=== PATIENT | male | born 1985 | race Caucasian/White ===

== ENCOUNTER 2023-03-20 10:01 | Inpatient (IN) | payer BC ==
[~2023-03-20] VITALS: Ht 182.9 cm; Wt 79.6 kg
[2023-03-20 10:45] LABS: CLARITY,URINE CLEAR (Clear); COLOR,URINE STRAW (Yellow); GLUCOSE, URINE >=1000 mg/dl (Neg); KETONES,URINE >=80 mg/dl (Neg); LEUKOCYTE ESTERASE ,URINE NEGATIVE (Neg); NITRITES, URINE NEGATIVE (Neg); OCCULT BLOOD,URINE TRACE-INTACT (Neg); PROTEIN,URINE NEGATIVE (Neg); UROBILINOGEN,URINE 0.2 E.U/dL (0.2-1.0)
[2023-03-20] MEDS ORDERED: normal saline 1000ML IV soln IVB ONE (10:45)
[2023-03-20] MEDS ORDERED: metoclopramide 5 mg/ml inj IV ONE (10:45)
[2023-03-20] MEDS ORDERED: ondansetron/PF 4mg/2ml inj IV ONE (10:45)
[2023-03-20 10:46] LABS: UA COLLECTION TYPE CLN CATCH MIDSTREAM
[2023-03-20 10:46] LABS: BASOPHILS % (AUTO) 0.2 % (0-1); EOSINOPHILS % (AUTO) 0 % (0-6); HEMATOCRIT 48.6 % (42.0-52.0); HEMOGLOBIN 16.3 g/dl (14.0-17.9); LYMPHOCYTES # (AUTO) 0.7 X10'3 (1.1-4.8); LYMPHOCYTES % (AUTO) 8.2 % (21-51); MEAN CORPUSCULAR HEMOGLOBIN 34.1 PG (27.0-31.0); MEAN CORPUSCULAR HGB CONC 33.5 g/dL (33.0-36.5); MEAN CORPUSCULAR VOLUME 101.9 FL (78-98); MEAN PLATELET VOLUME 8.6 FL (7.4-10.4); MONOCYTES # (AUTO) 0.5 X10'3 (0-0.9); MONOCYTES % (AUTO) 5.7 % (2-12); NEUTROPHILS # (AUTO) 7.4 X10'3 (1.8-7.7); NEUTROPHILS % (AUTO) 85.9 % (42-75); PLATELET COUNT 228 X10'3 (140-440); RED BLOOD COUNT 4.77 X10'6 (4.70-6.10); RED CELL DISTRIBUTION WIDTH 12.7 % (11.5-14.5); WHITE BLOOD COUNT 8.7 X10'3 (4.5-11.0)
[2023-03-20 10:54] LABS: BACTERIA,URINE FEW /HPF (Neg); MUCUS STRANDS NONE SEEN /LPF (Neg); RBC,URINE 0-2 /HPF (0-2); SQUAMOUS EPITHELIAL CELL,UR FEW /LPF (FEW); WBC,URINE 0-4 /HPF (0-4)
[2023-03-20 11:01] LABS: ALANINE AMINOTRANSFERASE 174 U/L (12-78); ALBUMIN 5.2 G/DL (3.4-5.0); ALBUMIN/GLOBULIN RATIO 1.3 (1.1-1.5); ALKALINE PHOSPHATASE 101 IU/L (46-116); ANION GAP 29 (8-16); ASPARTATE AMINO TRANSFERASE 121 U/L (10-37); BILIRUBIN,TOTAL 0.9 MG/DL (0.1-1.0); BLOOD UREA NITROGEN 31 MG/DL (7-18); BUN/CREATININE RATIO 14.4 (10.0-20.0); CALCIUM 9.1 MG/DL (8.5-10.1); CHLORIDE 78 MMOL/L (99-107); CREATININE 2.15 MG/DL (0.60-1.10); LIPASE 245 U/L (73-393); TOTAL PROTEIN 9.2 G/DL (6.4-8.2); eGFR 35 ML/MIN
[2023-03-20 11:05] LABS: GLUCOSE 556 MG/DL (70-104); POTASSIUM 6.2 MMOL/L (3.5-5.1); SODIUM 116 MMOL/L (135-145)
[2023-03-20 11:06] LABS: TOTAL CARBON DIOXIDE 8.7 MMOL/L (24-32)
[2023-03-20] MEDS ORDERED: Insulin Reg/NS 100units/100mL 100 ML IV PRN (12:05)
[2023-03-20] MEDS ORDERED: ringers solution, lacted 1,000 ML IV ONE (12:05)
--- NOTE | 2023-03-20 12:18 | NUR ---
RN CALLED PHARM TO REQ INSULIN DRIP BE PREPARED.
[2023-03-20] MEDS ORDERED: acetaminophen 325mg tablet PO PRN (12:40)
[2023-03-20] MEDS ORDERED: insulin regular, human U-100 3ml vial - multi-dose IV PRN (12:40)
[2023-03-20] MEDS ORDERED: Insulin Reg/NS 100units/100mL 100 ML IV SCH (12:40)
[2023-03-20] MEDS ORDERED: magnesium 4gm in 100ml NS 100 ML IV PRN (12:40)
[2023-03-20] MEDS ORDERED: magnesium Cl slow-release 64mg tablet PO PRN (12:40)
[2023-03-20] MEDS ORDERED: sodium phosphate inj. 30 MMOL in dextrose 5%-water 250 ML IV PRN (12:40)
[2023-03-20] MEDS ORDERED: sodium bicarbonate (8.4%) inj. 100 MEQ in dextrose 5% water 500ml 500 ML IV PRN (12:40)
[2023-03-20] MEDS ORDERED: ondansetron/PF 4mg/2ml inj IV PRN (12:40)
[2023-03-20] MEDS ORDERED: potassium Cl 20 mEq SR tablet PO PRN ×4 (12:40)
[2023-03-20] MEDS ORDERED: potassium Cl 40MEQ/1/2NS 520ml 520 ML IV PRN ×3 (12:40)
[2023-03-20] MEDS ORDERED: magnesium hydroxide 30ml (MOM) UD suspension PO PRN (12:40)
[2023-03-20] MEDS ORDERED: potassium CL 20mEq in D5-1/2NS 1,000 ML IV PRN (12:40)
[2023-03-20] MEDS ORDERED: HYDROcodone/acetaminophen 5mg/325mg tablet PO PRN (12:40)
[2023-03-20] MEDS ORDERED: Neutra Phos packet PO PRN (12:40)
[2023-03-20] MEDS ORDERED: HYDROcodone/acetaminophen 10/325mg tab PO PRN (12:40)
[2023-03-20] MEDS ORDERED: magnesium 2GM in 50ml NS 50 ML IV PRN (12:40)
[2023-03-20] MEDS ORDERED: sodium bicarbonate (8.4%) inj. 50 MEQ in dextrose 5% water 500ml 250 ML IV PRN (12:40)
[2023-03-20] MEDS ORDERED: sodium phosphate inj. 15 MMOL in dextrose 5%-water 250 ML IV PRN (12:40)
[2023-03-20] MEDS ORDERED: mag hydrox/Alum hydrox/simeth 30ml oral suspension PO PRN (12:40)
[2023-03-20] MEDS: normal saline 1000ml 1,000 ML IV SCH ×5 (13:10→20:40)
[2023-03-20 13:31] LABS: ALBUMIN 4.5 G/DL (3.4-5.0); ANION GAP 28 (8-16); BLOOD UREA NITROGEN 29 MG/DL (7-18); BUN/CREATININE RATIO 16.3 (10.0-20.0); CALCIUM 8.1 MG/DL (8.5-10.1); CHLORIDE 86 MMOL/L (99-107); CREATININE 1.78 MG/DL (0.60-1.10); SODIUM 121 MMOL/L (135-145); eGFR 43 ML/MIN
[2023-03-20 13:36] LABS: GLUCOSE 461 MG/DL (70-104); POTASSIUM 6.3 MMOL/L (3.5-5.1); TOTAL CARBON DIOXIDE 6.8 MMOL/L (24-32)
--- NOTE | 2023-03-20 13:36 | NUR ---
CRITCIAL RFESULT RECDEIVED FROM LAB; GLUCOSE 461, POTASSIUM 6.3, AND CO2 6.8; PT CURRENTLY RECEVING INSULIN DRIP AND ORDERED FLUIDS; PER RN SUMMER, POC GLUCOSE CHECK AT THIS TIME IS 375
--- NOTE | 2023-03-20 13:43 | NUR ---
RN CALLED PHARMACY D/T HOSPITALIST ENTERED ORD FOR INSULIN DRIP. PER PHARMACIST CONT WITH PARAMATERS FROM INITIAL ORDER AND SHE WILL RETIME NEXT INSULIN DRIP FOR 0200
--- NOTE | 2023-03-20 13:44 | NUR ---
RN RECHECKED PT BG. AT 1230 IT WAS 455. AT 1330 IT WAS 375. DECREASED BY 80. RN NOTIFIED DR LOONEY.
--- NOTE | 2023-03-20 14:07 | NUR ---
REPORT RECEIVED FROM VIRGEN RICHARDSON; PT RESTING COMFORTABLY IN BED; VSS; NAD NOTED; ALL NECESSARY MONITORING EQUIPMENT IN PLACE; INSULIN DRIP INFUSING AT 7 UNITS/HR ORDERED WITHOUT NEED FOR ADJUSTMENTS TO RATE AT THIS TIME; WATER PROVIDED FOR PT PER REQUEST; NO FURTHER NEEDS VOICED
--- NOTE | 2023-03-20 14:30 | NUR ---
SPOKE WITH DR. MCMILLAN REGARDING ADDITIONAL ORDERED NS BOLUS OF 2,000 ML; DR. MCMILLAN STATES THIS IS A DUPLICATE ORDER, ORDERED PART OF PROTOCOL AND NOT TO ADMINSTER; STATES JUST TO CONTINUE WITH INSULIN DRIP AT 7 UNITS/HR AND NS AT 250 ML/HR AT THIS TIME
--- NOTE | 2023-03-20 15:02 | NUR ---
DR. MCMILLAN PAGED PER PROTOCOL REGARDING RECENT POC GLUCOSE RESULT OF 276; AWAITING CALL BACK
--- NOTE | 2023-03-20 15:45 | NUR ---
PT IV FLUIDS CHANGED FROM NS 250 ML/HR TO D5 1/2 NS AT 150 ML/HR PER PROTOCOL; NO CURRENT ORDER ON MAR PLACED FOR FLUIDS; STILL AWAITING DR. MCMILLAN CALL BACK TO REPORT REPEAT POC GLUCOSE CHECKS
[2023-03-20] MEDS ORDERED: dextrose 5%-1/2 normal saline 1,000 ML IV PRN (15:50)
--- NOTE | 2023-03-20 16:52 | NUR ---
DR MCMILLAN PAGED WITH UPDATE ON PATIENT CONDITION. PAGER ID: [phone] MESSAGE: ER BED #4 ADIS. MOST RECENT GLUCOSE IS 182, DROPPED 94 SINCE LAST HOUR. IV FLUIDS OF D5.45 STARTED AT 150 ML/HR PER DKA PROTOCOL. INSULIN DRIP IS AT 7 UNITS/HR. DO YOU WANT RATE DECREASED? CALL ALANNA [phone]
[2023-03-20 17:13] LABS: ANION GAP 18 (8-16); BLOOD UREA NITROGEN 25 MG/DL (7-18); BUN/CREATININE RATIO 16.7 (10.0-20.0); CHLORIDE 93 MMOL/L (99-107); GLUCOSE 196 MG/DL (70-104); PHOSPHORUS 2.6 MG/DL (2.3-4.5); POTASSIUM 4.5 MMOL/L (3.5-5.1); SODIUM 123 MMOL/L (135-145); eGFR 53 ML/MIN
--- NOTE | 2023-03-20 17:22 | NUR ---
RECEIVED VRBO FROM DR. MCMILLAN TO DECREASE INSULIN DRIP RATE TO 4 UNITS/HR; RATE DECREASED ORDERED
[2023-03-20] MEDS ORDERED: INSU100V11 SQ (19:14)
[2023-03-20] MEDS: K and/or MAG REPLACEMENT MC SCH (19:34)
[2023-03-20] MEDS: docusate sod 100mg capsule PO SCH (20:00)
[2023-03-20] MEDS ORDERED: K and/or MAG REPLACEMENT MC SCH (20:00)
[2023-03-20] MEDS ORDERED: enoxaparin 40mg/0.4ml syringe SQ SCH (20:00)
--- NOTE | 2023-03-20 20:01 | NUR ---
Rec'd report from VIRGEN Castillo in the ER.
[2023-03-20 20:27] VITALS: BP 139/75
[2023-03-20 21:18] LABS: HEMOGLOBIN A1C 7.4 % (4.5-6.2)
[2023-03-21] MEDS: normal saline 1000ml 1,000 ML IV SCH ×3 (00:40→09:25)
[2023-03-21 01:17] LABS: ALANINE AMINOTRANSFERASE 123 U/L (12-78); ALBUMIN/GLOBULIN RATIO 1.3 (1.1-1.5); ALKALINE PHOSPHATASE 70 IU/L (46-116); ANION GAP 10 (8-16); ASPARTATE AMINO TRANSFERASE 68 U/L (10-37); BILIRUBIN,TOTAL 0.8 MG/DL (0.1-1.0); BLOOD UREA NITROGEN 19 MG/DL (7-18); BUN/CREATININE RATIO 16.2 (10.0-20.0); CALCIUM 8.4 MG/DL (8.5-10.1); CHLORIDE 98 MMOL/L (99-107); CREATININE 1.17 MG/DL (0.60-1.10); GLUCOSE 104 MG/DL (70-104); POTASSIUM 3.9 MMOL/L (3.5-5.1); SODIUM 130 MMOL/L (135-145); TOTAL CARBON DIOXIDE 21.8 MMOL/L (24-32); eGFR 71 ML/MIN
[2023-03-21 01:57] LABS: BASOPHILS % (AUTO) 0.1 % (0-1); EOSINOPHILS % (AUTO) 0.2 % (0-6); HEMATOCRIT 39.9 % (42.0-52.0); HEMOGLOBIN 13.5 g/dl (14.0-17.9); LYMPHOCYTES # (AUTO) 1.4 X10'3 (1.1-4.8); LYMPHOCYTES % (AUTO) 16.3 % (21-51); MEAN CORPUSCULAR HEMOGLOBIN 33.2 PG (27.0-31.0); MEAN CORPUSCULAR HGB CONC 33.8 g/dL (33.0-36.5); MEAN CORPUSCULAR VOLUME 98.1 FL (78-98); MEAN PLATELET VOLUME 8.6 FL (7.4-10.4); MONOCYTES # (AUTO) 1.3 X10'3 (0-0.9); MONOCYTES % (AUTO) 16.1 % (2-12); NEUTROPHILS # (AUTO) 5.6 X10'3 (1.8-7.7); NEUTROPHILS % (AUTO) 67.3 % (42-75); PLATELET COUNT 182 X10'3 (140-440); RED BLOOD COUNT 4.07 X10'6 (4.70-6.10); RED CELL DISTRIBUTION WIDTH 12.1 % (11.5-14.5); WHITE BLOOD COUNT 8.3 X10'3 (4.5-11.0)
[2023-03-21 02:00] VITALS: BP 127/65
[2023-03-21] MEDS ORDERED: DEXTROSE 15 GM of carb/4 tabs (each vial/BOTTLE has 4 tablets) PO PRN ×2 (02:10)
[2023-03-21] MEDS ORDERED: glucagon, human recombinant 1mg kit SUBCUT PRN (02:10)
[2023-03-21] MEDS ORDERED: dextrose 50%-water 50ml dispensing syringe IV PRN (02:10)
[2023-03-21] MEDS ORDERED: Insulin Reg/NS 100units/100mL 100 ML IV SCH ×2 (02:30)
[2023-03-21] MEDS: insulin Lispro (HumaLOG) vial - multi-dose SQ SCH ×3 (02:33→12:11)
[2023-03-21 04:21] LABS: SMUDGE CELLS 2+; TOTAL CELLS COUNTED 100
[2023-03-21 04:22] LABS: PLATELET ESTIMATE NORMAL
--- NOTE | 2023-03-21 06:24 | NUR ---
Problems reprioritized. Patient report given, questions answered & plan of care reviewed with VIRGEN Boyce.
[2023-03-21 06:30] VITALS: BP 117/65
[2023-03-21 06:45] LABS: ALANINE AMINOTRANSFERASE 110 U/L (12-78); ALBUMIN 3.6 G/DL (3.4-5.0); ALBUMIN/GLOBULIN RATIO 1.2 (1.1-1.5); ALKALINE PHOSPHATASE 64 IU/L (46-116); AMYLASE 65 U/L (25-115); ANION GAP 12 (8-16); ASPARTATE AMINO TRANSFERASE 69 U/L (10-37); BILIRUBIN,TOTAL 0.8 MG/DL (0.1-1.0); BLOOD UREA NITROGEN 16 MG/DL (7-18); BUN/CREATININE RATIO 16.8 (10.0-20.0); CALCIUM 8.3 MG/DL (8.5-10.1); CHLORIDE 98 MMOL/L (99-107); CREATININE 0.95 MG/DL (0.60-1.10); GLUCOSE 214 MG/DL (70-104); LIPASE 230 U/L (73-393); MAGNESIUM 2.2 MG/DL (1.5-2.4); PHOSPHORUS 1.9 MG/DL (2.3-4.5); SODIUM 130 MMOL/L (135-145); TOTAL CARBON DIOXIDE 20.1 MMOL/L (24-32); TOTAL PROTEIN 6.5 G/DL (6.4-8.2); eGFR 90 ML/MIN
[2023-03-21] MEDS: K and/or MAG REPLACEMENT MC SCH (08:00)
[2023-03-21] MEDS: docusate sod 100mg capsule PO SCH (08:00)
[2023-03-21] MEDS ORDERED: enoxaparin 40mg/0.4ml syringe SUBCUT SCH (08:00)
[2023-03-21 10:30] VITALS: BP 123/67
--- NOTE | 2023-03-21 11:19 | NUR ---
DM Consult: Pt admit DX DKA and acute renal failure hx T1DM w/ insulin pump A1C 7.4% w/ Glu currently 212mg/dl down from 567mg/dl on admit. Initial serum Na 116 now up to 130mmol/L receiving NS at 250ml/hr per EMR. 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 Pt seen by RD for written/verbal DM diet ed w/ emphasis on hydrations strategies. Pt reports typically has well controlled Glu w/ insulin pump but forgot it at work and Glu quickly became out of control. 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 RD educated pt on hydration strategies during working hours and encouraged pt continued use of pump to maintain optimal Glu. Pt reports typically will let Glu be slightly elevated ~200mg/dl prior to work since is down to 120mg/dl within an hour which is understandable. RD encouraged pt to contact dietitian's office if further nutrition questions/concerns. Per MD note, pt to be discharged today. Rec: 1. continue carb controlled diet Addendum: 03/21/23 at [address] Amended: Links added.
[2023-03-21] MEDS ORDERED: Neutra Phos packet PO ONE (12:02)
--- NOTE | 2023-03-21 12:18 | NUR ---
Patient wanted humalog coverage for bg 262. he does not want to eat here and is being d/c'd.
--- NOTE | 2023-03-21 12:45 | NUR ---
Pt stable for d/c per MD orders All d/c ppwk was rev'd with patient. Pt verbalized understanding. All questions, comments and concerns were answered at this time. Aluminum Siding Applicator spoke with patient before he left. PIV's removed x 2 - pt tolerated well. Tele monitor removed and returned to tech. No new RX at this time. All personal belongings were sent with patient. Patient wanted to walk out. Was walked out by nursing staff to family waiting with car.
[2023-03-21] MEDS ORDERED: insulin glargine (Lantus) pen - multi-dose SQ SCH (21:00)
== END 2023-03-21 12:35 | disposition home or self-care (01) | DRG 638 ==
LOC: ER 10:01 → ED HOLD 12:44 → EDBEDREQ 17:46 → PCU 3S 20:17
PROVIDERS: ADMIT Internal Medicine; ATTEND Internal Medicine
DX: E10.10 Type 1 diabetes mellitus with ketoacidosis without coma (principal); E87.1 Hypo-osmolality and hyponatremia; N17.9 Acute kidney failure, unspecified; E86.0 Dehydration; E87.5 Hyperkalemia; Z79.4 Long term (current) use of insulin; Z87.891 Personal history of nicotine dependence
CPT/HCPCS: 36415; 80048; 80053; 81001; 82150; 82800; 82948; 83036; 83690; 83735; 84100; 85007; 85025; 85610; 87081; 96361; 96365; 96375; 99291; G0378; J1650; J1815; J2405; J2765; J7030; J7120